=== PATIENT | female | born 1940 | race Caucasian/White ===

== ENCOUNTER → 2024-08-25 | Outpatient (CLI) | payer MEDICARE, OTHER ==
[2024-08-25 19:57] LABS: HCT 38.5 % (37.2-46.3); HGB 12.1 g/dL (12.0-15.0); MCHC 31.4 g/dL (32.0-37.0); MCV 95.5 FL (80.0-97.0); Mean Platelet Volume 11.2 FL (9.5-12.2); NRBC Per 100 WBC 0 X 10*3/uL (0.00-0.01); Platelet Count 302 X 10*3/uL (140-440); RBC 4.03 X 10*6/uL (4.10-5.20); RDW 13.7 % (11.5-14.5); WBC 6.98 X 10*3/uL (4.50-10.00)
== END | disposition home or self-care (01) ==
LOC: LABWHC1 14:22
PROVIDERS: ATTEND Internal Medicine Interventional Cardiology
DX: I10 Essential (primary) hypertension (principal)
CPT/HCPCS: 36415; 84443; 85027

== ENCOUNTER 2025-03-10 07:53 | Emergency (ER) | payer MEDICARE, OTHER ==
[2025-03-10 09:08] VITALS: RESP 18
[2025-03-10] MEDS ORDERED: cloNIDine HCL 0.1 MG TAB PO SCH (09:30)
[2025-03-10] MEDS ORDERED: hydrALAZINE HCL 25 MG TAB PO SCH (09:30)
[2025-03-10] MEDS ORDERED: METOPROLOL TARTRATE 12.5 MG TAB PO SCH (09:30)
--- NOTE | 2025-03-10 10:02 | ED ---
General Adult HPI - General Chief complaint: Recheck/Abnormal Lab/Rx Stated complaint: abn labs/pre-op Time Seen by Provider: 03/10/25 08:00 Source: patient Mode of arrival: wheelchair Limitations: no limitations - History of Present Illness Initial comments: 85-year-old female who presents to the emergency department from preop. Patient was supposed to present today to have a small bowel follow-through. States that currently replacing the unit on her that they did take her vitals. Patient was found to be super hypertensive. Patient does have a history of hypertension and takes several blood pressure medications to keep this down. States that because she had to leave the house so early this morning that she did not take these medications. She denies having any symptoms. No headache or visual changes. No lateralizing weakness in her body. No chest pain or difficulty breathing. They were able to place the unit on the patient and told her she had to go to the ER to be evaluated. No other alleviating, precipitating modifying factors - Related Data Home Medications Medication Instructions Recorded Confirmed Aspirin [Adult Low Dose Aspirin EC] 81 mg PO DAILY 03/08/25 03/10/25 Ferrous Sulfate [Iron] 325 mg PO DAILY 03/08/25 03/10/25 Losartan Potassium 100 mg PO HS 03/08/25 03/10/25 Metoprolol Tartrate [Lopressor] 12.5 mg PO DAILY 03/08/25 03/10/25 Pantoprazole [Protonix] 40 mg PO DAILY 03/08/25 03/10/25 amLODIPine [Norvasc] 5 mg PO DAILY 03/08/25 03/10/25 cloNIDine HCL 0.1 mg PO BID 03/08/25 03/10/25 hydrALAZINE HCL 25 mg PO TID 03/08/25 03/10/25 Allergies Allergy/AdvReac Type Severity Reaction Status Date / Time No Known Allergies Allergy Verified 03/10/25 07:20 Review of Systems ROS Statement: Those systems with pertinent positive or pertinent negative responses have been documented in the HPI. ROS Other: All systems not noted in ROS Statement are negative. Past Medical History Past Medical History: GI Bleed, Hypertension Past Surgical History: Bowel Resection, Cholecystectomy, Orthopedic Surgery Additional Past Surgical History / Comment(s): liver resection Smoking Status: Former smoker General Exam Limitations: no limitations General appearance: alert, in no apparent distress Head exam: Present: atraumatic, normocephalic, normal inspection Eye exam: Present: normal appearance, PERRL, EOMI. Absent: scleral icterus, conjunctival injection, periorbital swelling ENT exam: Present: normal exam, mucous membranes moist Neck exam: Present: normal inspection. Absent: tenderness, meningismus, lymphadenopathy Respiratory exam: Present: normal lung sounds bilaterally. Absent: respiratory distress, wheezes, rales, rhonchi, stridor Cardiovascular Exam: Present: regular rate, normal rhythm, normal heart sounds. Absent: systolic murmur, diastolic murmur, rubs, gallop, clicks GI/Abdominal exam: Present: soft, normal bowel sounds. Absent: distended, tenderness, guarding, rebound, rigid Extremities exam: Present: normal inspection, full ROM, normal capillary refill. Absent: tenderness, pedal edema, joint swelling, calf tenderness Back exam: Present: normal inspection Neurological exam: Present: alert, oriented X3, CN II-XII intact Psychiatric exam: Present: normal affect, normal mood Skin exam: Present: warm, dry, intact, normal color. Absent: rash Course Vital Signs 03/10/25 03/10/25 03/10/25 07:55 08:13 09:07 Temperature 97.5 F L Pulse Rate 58 L 55 L Respiratory 16 18 Rate Blood Pressure 204/102 212/105 198/101 O2 Sat by Pulse 96 98 Oximetry 03/10/25 10:12 Temperature 97.8 F Pulse Rate 60 Respiratory 18 Rate Blood Pressure 213/95 O2 Sat by Pulse 98 Oximetry Medical Decision Making - Medical Decision Making Was pt. sent in by a medical professional or institution (LISA Samson, TELEPHONIC RN, urgent care, hospital, or half-way...) When possible be specific @ -Patient was sent in from the preop area Did you speak to anyone other than the patient for history (EMS, parent, family, police, friend...)? What history was obtained from this source @ -No Did you review nursing and triage notes (agree or disagree)? Why? @ -I reviewed and agree with nursing and triage notes Were old charts reviewed (outside hosp., previous admission, EMS record, old EKG, old radiological studies, urgent care reports/EKG's, half-way records)? Report findings @ -I reviewed the discharge paperwork that the patient was provided from outpatient testing instructing her when she can eat and drink Differential Diagnosis (chest pain, altered mental status, abdominal pain women, abdominal pain men, vaginal bleeding, weakness, fever, dyspnea, syncope, headache, dizziness, GI bleed, back pain, seizure, CVA, palpatations, mental health, musculoskeletal)? @ -Medical noncompliance, stroke, ACS EKG interpreted by me (3pts min.). @ -Not done X-rays interpreted by me (1pt min.). @ -None done CT interpreted by me (1pt min.). @ -None done U/S interpreted by me (1pt. min.). @ -None done What testing was considered but not performed or refused? (CT, X-rays, U/S, labs)? Why? @ -None What meds were considered but not given or refused? Why? @ -Patient's blood pressure medications were considered however patient does not want to take them at this time. Per discharge paperwork states that the patient can take her medications at 11 AM. Patient would like to go home and take her medications then Did you discuss the management of the patient with other professionals (professionals i.e. , PA, TELEPHONIC RN, lab, RT, psych nurse, social and human services assistant, corporate lawyer, teacher, correction officer penitentiary, rn field case manager)? Give summary @ -No Was smoking cessation discussed for >3mins.? @ -No Was critical care preformed (if so, how long)? @ -No Were there social determinants of health that impacted care today? How? (Homelessness, low income, unemployed, alcoholism, drug addiction, transportation, low edu. Level, literacy, decrease access to med. care, shelter, rehab)? @ -No Was there de-escalation of care discussed even if they declined (Discuss DNR or withdrawal of care, Hospice)? DNR status @ -No What co-morbidities impacted this encounter? (DM, HTN, Smoking, COPD, CAD, Cancer, CVA, ARF, Chemo, Hep., AIDS, mental health diagnosis, sleep apnea, morbid obesity)? @ -Hypertension Was patient admitted / discharged? Hospital course, mention meds given and route, prescriptions, significant lab abnormalities, going to OR and other pertinent info. @ -Upon arrival patient seen and evaluated in bed 19. Thorough history and physical exam was performed. I do not forget to get the patient's blood pressure medications ordered however she would like to take them at 11 AM as this is when patient is allowed because of her small bowel follow-through study. I do think it is okay for the patient to take her medications at 11 AM. She is to return at 3 PM to return the unit. Her blood pressure will be reevaluated at that time. If she has any symptoms she is to return sooner. Patient agreeable to plan she was discharged in stable condition Undiagnosed new problem with uncertain prognosis? @ -No Drug Therapy requiring intensive monitoring for toxicity (Heparin, Nitro, Insulin, Cardizem)? @ -No Were any procedures done? @ -No Diagnosis/symptom? @ -Accelerated hypertension, history of hypertension Acute, or Chronic, or Acute on Chronic? @ -Acute on chronic Uncomplicated (without systemic symptoms) or Complicated (systemic symptoms)? @ -Complicated Side effects of treatment? @ -No Exacerbation, Progression, or Severe Exacerbation? @ -No Poses a threat to life or bodily function? How? (Chest pain, USA, MD, pneumonia, PE, COPD, DKA, ARF, appy, cholecystitis, CVA, Diverticulitis, Homicidal, Suicidal, threat to staff... and all critical care pts) @ -No Disposition Clinical Impression: Hypertension Disposition: HOME SELF-CARE Condition: Stable Instructions (If sedation given, give patient instructions): Hypertension (ED) Additional Instructions: Take your blood pressure medication at 11:45. This includes your clonidine, Toprol and hydralazine. They will check your blood pressure when you return this afternoon. Is patient prescribed a controlled substance at d/c from ED?: No Referrals: Orlando Macias MD [Primary Care Provider] - 1-2 days Time of Disposition: 10:02
[2025-03-10 10:13] VITALS: BP 213/95; PULSE 60; TEMP 97.8
== END 2025-03-10 10:13 | disposition home or self-care (01) ==
LOC: EC 07:53
DX: I10 Essential (primary) hypertension (principal); Z79.82 Long term (current) use of aspirin; Z87.891 Personal history of nicotine dependence
CPT/HCPCS: 99283